=== PATIENT | male | born 1975 | race African-American/Black ===

== ENCOUNTER 2017-10-20 17:11 | Emergency (ER) | payer MEDICAID ==
[~2017-10-20] VITALS: Ht 177.8 cm; Wt 78.0 kg
[~2017-10-20 17:11] MED LIST: BACLOFEN; HYDR-519; TIZANIDINE; VIAGRA
[2017-10-20 17:27] VITALS: BP 125/72
== END 2017-10-21 | disposition left against medical advice (07) ==
LOC: ER 21:22
DX: R30.0 Dysuria (principal)
CPT/HCPCS: 99281